=== PATIENT | female | born 1955 | race Caucasian/White ===

== ENCOUNTER → 2019-06-08 08:45 | Outpatient (CLI) | payer OTHER, SELFPAY ==
[2019-06-08 09:40] LABS: BUN Creatinine Ratio 17.8 (6-22); Blood Urea Nitrogen 16 mg/dL (7-17); Calcium 9.3 mg/dL (8.4-10.2); Carbon Dioxide 32 mmol/L (22-32); Chloride 99 mmol/L (98-107); Cholesterol 195 mg/dL (140-199); Estimated Glomerular Filt Rate > 60.0 mL/min (>60); Glucose 94 mg/dL (80-110); HDL Cholesterol 79 mg/dL (40-60); HEMOLYSIS < 15 (0-50); LDL Cholesterol Calculated 102 mg/dL (<100); Potassium 3.8 mmol/L (3.4-5.1); Sodium 137 mmol/L (137-145); Triglycerides 72 mg/dL (35-150)
== END ==
PROVIDERS: PCP Internal Medicine; Visit Provider Internal Medicine
DX: Z00.00 Encounter for general adult medical examination without abnormal findings (principal)
CPT/HCPCS: 36415; 80048; 80061

== ENCOUNTER → 2019-07-20 11:25 | Outpatient (CLI) | payer OTHER, SELFPAY ==
--- NOTE | 2019-07-20 | DI.MG.S_ITS ---
BILATERAL DIGITAL SCREENING MAMMOGRAM 3D/2D WITH CAD: 07/20/2019 CLINICAL: Routine screening. Comparison is made to exams dated: 05/08/2017 mammogram and 06/24/2013 mammogram - [facility]. There are scattered fibroglandular elements in both breasts. Current study was also evaluated with a Computer Aided Detection (CAD) system. No significant masses, calcifications, or other findings are seen in either breast. There has been no significant interval change. IMPRESSION: NEGATIVE There is no mammographic evidence of malignancy. A 1 year screening mammogram is recommended. This exam was interpreted at Station ID: [id number]. NOTE: For mammograms, a report in lay terms will be sent to the patient. Approximately 15% of breast malignancies will not be visualized mammographically. In the management of a palpable breast mass, a negative mammogram must not discourage biopsy of a clinically suspicious lesion. Electronically Signed By: Cecilio oliveira/bryon:07/21/2019 14:27:41 letter sent: Normal Exam ACR BI-RADS Category 1: Negative 3341F
== END ==
PROVIDERS: PCP Internal Medicine; Visit Provider Internal Medicine
DX: Z12.31 Encounter for screening mammogram for malignant neoplasm of breast (principal)
CPT/HCPCS: 77063; 77067

== ENCOUNTER → 2020-08-09 10:26 | Outpatient (CLI) | payer OTHER, SELFPAY ==
--- NOTE | 2020-08-09 | DI.RAD.S_ITS ---
PROCEDURE: XR KNEE LT 1TO2V INDICATIONS: LEFT KNEE PAIN TECHNIQUE: 3 views of the knee were acquired. COMPARISON: None. FINDINGS: Bones: No fractures or dislocations. No suspicious bony lesions. Small spur at the superior pole of the patella. No definite joint space narrowing. Soft tissues: No joint effusion. No suspicious soft tissue calcifications. IMPRESSION: Spurring at the superior pole of the patella. Dictated by: Fabricio Mercer M.D. on 08/09/2020 at 11:19 Approved by: Fabricio Mercer M.D. on 08/09/2020 at 11:20
== END ==
PROVIDERS: PCP Internal Medicine; Referring Provider Internal Medicine; Visit Provider Internal Medicine
DX: M25.562 Pain in left knee (principal)
CPT/HCPCS: 73560

== ENCOUNTER → 2020-08-29 14:06 | Outpatient (CLI) | payer OTHER, SELFPAY ==
--- NOTE | 2020-08-29 10:18 | DI.US.S_ITS ---
Date: 08/29/2020 10:18 At the request of: MARIBEL TEJADA Procedure: US breast RT limited LIMITED ULTRASOUND OF RIGHT BREAST: 08/29/2020 CLINICAL: Palpable right breast lump by physician. Comparison is made to exams dated: 08/29/2020 mammogram, 07/20/2019 mammogram - [facility], and 05/08/2017 mammogram - [facility]. Real-time ultrasound of the right breast was performed. Meza scale images of the real-time examination were reviewed. No significant abnormalities were seen sonographically in the right breast. IMPRESSION: NEGATIVE There is no sonographic evidence of malignancy. There is no abnormality seen in the right breast to correspond with the palpable abnormality, however, clinical correlation is recommended. A 1 year screening mammogram is recommended. This exam was interpreted at Station ID: [id number]. Electronically Signed By: Bethel cohen/bryon:08/30/2020 11:10:54 letter sent: Clinical Evaluation Ultrasound BI-RADS: 1 Negative
--- NOTE | 2020-08-29 14:33 | DI.MG.S_ITS ---
Date: 08/29/2020 15:42 At the request of: MARIBEL TEJADA Procedure: MM diagnostic mammo BI BILATERAL DIGITAL DIAGNOSTIC MAMMOGRAM 3D/2D: 08/29/2020 CLINICAL: Right breast lump. Comparison is made to exams dated: 07/20/2019 mammogram - [facility] and 05/08/2017 mammogram - [facility]. There are scattered fibroglandular elements in both breasts. No significant masses, calcifications, or other findings are seen in either breast. IMPRESSION: INCOMPLETE: NEEDS ADDITIONAL IMAGING EVALUATION There is no abnormality seen in the right breast to correspond with the reported palpable abnormality felt by the patient's physician, however, ultrasound is recommended. Targeted ultrasound is recommended for further evaluation, which will be scheduled immediately following this exam. This exam was interpreted at Station ID: [id number]. NOTE: For mammograms, a report in lay terms will be sent to the patient. Approximately 15% of breast malignancies will not be visualized mammographically. In the management of a palpable breast mass, a negative mammogram must not discourage biopsy of a clinically suspicious lesion. Electronically Signed By: Bethel Persaud M.D. ar/:08/30/2020 11:09:48 ACR BI-RADS Category 0: Incomplete 3340F
== END ==
PROVIDERS: PCP Internal Medicine; Referring Provider Internal Medicine; Visit Provider Internal Medicine
DX: R92.2 Inconclusive mammogram (principal); N63.10 Unspecified lump in the right breast, unspecified quadrant
CPT/HCPCS: 76642; 77066; G0279

== ENCOUNTER → 2020-10-11 09:42 | Outpatient (CLI) | payer OTHER, SELFPAY ==
[2020-10-11] MEDS: COVID-19 VACC #1, MRNA(MOD) 100 MCG/0.5 ML VIAL IM (09:44)
== END ==
PROVIDERS: PCP Internal Medicine; Visit Provider Internal Medicine
DX: Z23 Encounter for immunization (principal)
CPT/HCPCS: 0011A; 91301

== ENCOUNTER → 2020-11-08 09:07 | Outpatient (CLI) | payer OTHER, SELFPAY ==
[2020-11-08] MEDS: COVID-19 VACC #2, MRNA(MOD) 100 MCG/0.5 ML VIAL IM (09:11)
== END ==
PROVIDERS: PCP Internal Medicine; Visit Provider Internal Medicine
DX: Z23 Encounter for immunization (principal)
CPT/HCPCS: 0012A; 91301

== ENCOUNTER → 2021-06-26 08:42 | Outpatient (CLI) | payer MEDICARE, SELFPAY ==
[2021-06-26 10:11] LABS: Add Manual Diff / Slide Review NO; Basophils Absolute Auto 0 /uL (0-100); Basophils Percent Auto 0.4 % (0-2); Eosinophils Absolute Auto 100 /uL (0-450); Eosinophils Percent Auto 2.2 % (2-4); Hematocrit 40.3 % (36-46); Hemoglobin 13.9 g/dL (12.0-16.0); Lymphocytes Absolute Auto 1800 /uL (1100-4500); Lymphocytes Percent Auto 36.1 % (25-40); Mean Corpuscular HGB Conc 34.6 % (30-36); Mean Corpuscular Hemoglobin 31.9 PG (26-34); Mean Corpuscular Volume 92.4 fL (80-100); Monocytes Absolute Auto 400 /uL (0-900); Monocytes Percent Auto 7.9 % (3-14); Neutrophils Absolute Auto 2600 /uL (1500-7000); Neutrophils Percent Auto 53.4 % (50-75); Platelet Count 200 X10^3/uL (150-400); Red Blood Cell Count 4.36 X10^6/uL (4.0-5.2); Red Cell Distribution Width 13.4 % (11.6-14.8); White Blood Cell Count 4.9 X10^3/uL (4.5-11.0)
[2021-06-26 10:39] LABS: Alanine Aminotransferase 17 IU/L (<35); Albumin 4.6 g/dL (3.5-5.0); Albumin Globulin Ratio 1.9 (1.0-2.8); Alkaline Phosphatase 67 U/L (38-126); Aspartate Aminotransferase 27 IU/L (14-36); BUN Creatinine Ratio 15.9 (6-22); Bilirubin Total 0.7 mg/dL (0.2-1.3); Blood Urea Nitrogen 13 mg/dL (7-17); Calcium 9.3 mg/dL (8.4-10.2); Carbon Dioxide 31 mmol/L (22-32); Chloride 101 mmol/L (98-107); Cholesterol 219 mg/dL (140-199); Estimated Glomerular Filt Rate > 60.0 mL/min (>60); Globulin 2.4 g/dL (1.7-4.1); Glucose 92 mg/dL (80-110); HDL Cholesterol 84 mg/dL (40-60); HEMOLYSIS < 15 (0-50); LDL Cholesterol Calculated 114 mg/dL (<100); Sodium 140 mmol/L (137-145); Triglycerides 105 mg/dL (35-150)
== END ==
PROVIDERS: PCP Family Medicine; Referring Provider Family Medicine; Visit Provider Family Medicine
DX: E78.5 Hyperlipidemia, unspecified (principal); L71.9 Rosacea, unspecified; G43.909 Migraine, unspecified, not intractable, without status migrainosus
CPT/HCPCS: 36415; 80053; 80061; 85025

== ENCOUNTER → 2021-07-23 09:58 | Outpatient (CLI) | payer MEDICARE, SELFPAY ==
--- NOTE | 2021-07-23 10:00 | DI.RAD.S_ITS ---
PROCEDURE: XR FOOT RT MIN 3V INDICATIONS: right 5th toe pain, injury TECHNIQUE: 3 views of the foot were acquired. COMPARISON: None. FINDINGS: Bones: Question subtle fracture of the distal neck of the proximal phalanx of the small toe. This is not definite. No suspicious bony lesions. Soft tissues: No tibiotalar joint effusion. Achilles tendon appears normal. IMPRESSION: Question subtle fracture of the distal neck of the proximal phalanx of the small toe. Dictated by: Jean-Claude Cool M.D. on 07/23/2021 at 12:54 Approved by: Jean-Claude Cool M.D. on 07/23/2021 at 12:54
== END ==
PROVIDERS: PCP Family Medicine; Referring Provider Family Medicine; Visit Provider Family Medicine
DX: S93.504A Unspecified sprain of right lesser toe(s), initial encounter (principal); X58.XXXA Exposure to other specified factors, initial encounter
CPT/HCPCS: 73630

== ENCOUNTER → 2021-10-01 11:22 | Outpatient (CLI) | payer MEDICARE, SELFPAY ==
--- NOTE | 2021-10-01 11:23 | DI.RAD.S_ITS ---
PROCEDURE: XR DEXA AXIAL SKELETON INDICATIONS: osteoporosis screen COMPARISON: None. FINDINGS: This blank DEXA report has been sent in error by the PACS system. The correct and complete report will be forthcoming in 1-2 days. Thank you for your patience and understanding. Dictated by: Elizabeth Moser MD, PhD on 10/01/2021 at 13:38 Approved by: Elizabeth Moser MD, PhD on 10/01/2021 at 13:38
== END ==
PROVIDERS: PCP Family Medicine; Referring Provider Family Medicine; Visit Provider Family Medicine
DX: M85.89 Other specified disorders of bone density and structure, multiple sites (principal); Z13.820 Encounter for screening for osteoporosis; Z78.0 Asymptomatic menopausal state
CPT/HCPCS: 77080

== ENCOUNTER → 2022-09-17 07:41 | Outpatient (CLI) | payer MEDICARE, SELFPAY ==
[2022-09-17 09:06] LABS: Add Manual Diff / Slide Review NO; Basophils Absolute Auto 0 /uL (0-100); Basophils Percent Auto 0.4 % (0-2); Eosinophils Absolute Auto 100 /uL (0-450); Eosinophils Percent Auto 2.1 % (2-4); Hematocrit 39.1 % (36-46); Hemoglobin 13.4 g/dL (12.0-16.0); Lymphocytes Absolute Auto 1800 /uL (1100-4500); Mean Corpuscular HGB Conc 34.4 % (30-36); Mean Corpuscular Hemoglobin 31.9 PG (26-34); Mean Corpuscular Volume 92.8 fL (80-100); Monocytes Absolute Auto 400 /uL (0-900); Monocytes Percent Auto 8.4 % (3-14); Neutrophils Absolute Auto 2400 /uL (1500-7000); Neutrophils Percent Auto 50.1 % (50-75); Platelet Count 202 X10^3/uL (150-400); Red Blood Cell Count 4.21 X10^6/uL (4.0-5.2); Red Cell Distribution Width 13.8 % (11.6-14.8); White Blood Cell Count 4.7 X10^3/uL (4.5-11.0)
[2022-09-17 09:23] LABS: Alanine Aminotransferase 26 IU/L (<35); Albumin 4.5 g/dL (3.5-5.0); Albumin Globulin Ratio 1.4 (1.0-2.8); Alkaline Phosphatase 60 U/L (38-126); Aspartate Aminotransferase 30 IU/L (14-36); BUN Creatinine Ratio 18.5 (6-22); Bilirubin Total 0.7 mg/dL (0.2-1.3); Blood Urea Nitrogen 15 mg/dL (7-17); Calcium 8.9 mg/dL (8.4-10.2); Carbon Dioxide 31 mmol/L (22-32); Chloride 100 mmol/L (98-107); Cholesterol 205 mg/dL (140-199); Estimated Glomerular Filt Rate > 60 mL/min (>60); Globulin 3.2 g/dL (1.7-4.1); Glucose 89 mg/dL (80-110); HDL Cholesterol 68 mg/dL (40-60); HEMOLYSIS < 15 (0-50); LDL Cholesterol Calculated 113 mg/dL (<100); Potassium 3.7 mmol/L (3.4-5.1); Sodium 138 mmol/L (137-145); Total Protein 7.7 g/dL (6.3-8.2); Triglycerides 119 mg/dL (35-150)
[2022-09-17 09:54] LABS: TSH w/ Reflex to FT4 4.44 uIU/mL (0.47-4.68)
== END ==
PROVIDERS: PCP Family Medicine; Referring Provider Family Medicine; Visit Provider Family Medicine
DX: Z00.00 Encounter for general adult medical examination without abnormal findings (principal); E78.5 Hyperlipidemia, unspecified; G43.909 Migraine, unspecified, not intractable, without status migrainosus; N95.1 Menopausal and female climacteric states
CPT/HCPCS: 36415; 80053; 80061; 84443; 85025

== ENCOUNTER → 2022-09-23 09:12 | Outpatient (CLI) | payer MEDICARE, SELFPAY ==
--- NOTE | 2022-09-23 09:13 | DI.MG.S_ITS ---
BILATERAL DIGITAL SCREENING MAMMOGRAM 3D/2D WITH CAD: 09/23/2022 CLINICAL: Routine screening. Comparison is made to exams dated: 07/20/2019 mammogram - [facility], 05/08/2017 mammogram - [facility], and 08/29/2020 mammogram - [facility]. There are scattered areas of fibroglandular density in both breasts (category b / 25%-50% glandular tissue). Current study was also evaluated with a Computer Aided Detection (CAD) system. No significant masses, calcifications, or other findings are seen in either breast. There has been no significant interval change. IMPRESSION: NEGATIVE There is no mammographic evidence of malignancy. A 1 year screening mammogram is recommended. Based on the Tyrer Cuzick model (a risk assessment model) the patient's lifetime risk is 6.4% and her 10 year risk is 3.2%. According to the ACR, ACS, and NCCN guidelines, an annual breast MRI exam along with mammogram is recommended if the patient's lifetime risk is 20% or greater. This exam was interpreted at Station ID: [id number]. NOTE: For mammograms, a report in lay terms will be sent to the patient. Approximately 15% of breast malignancies will not be visualized mammographically. In the management of a palpable breast mass, a negative mammogram must not discourage biopsy of a clinically suspicious lesion. Electronically Signed By: Bethel cohen/bryon:09/23/2022 09:49:24 letter sent: Normal Exam ACR BI-RADS Category 1: Negative 3341F
== END ==
PROVIDERS: PCP Family Medicine; Referring Provider Family Medicine; Visit Provider Family Medicine
DX: Z12.31 Encounter for screening mammogram for malignant neoplasm of breast (principal)
CPT/HCPCS: 77063; 77067

== ENCOUNTER → 2023-04-12 11:26 | Outpatient (CLI) | payer MEDICARE, SELFPAY ==
--- NOTE | 2023-04-12 11:28 | DI.RAD.S_ITS ---
PROCEDURE: XR WRIST LT MIN 3V INDICATIONS: Fall on left wrist TECHNIQUE: 4 views of the wrist were acquired. COMPARISON: None. FINDINGS: Bones: No fractures or dislocations. No suspicious bony lesions. Scaphoid view: No fracture. Soft tissues: No suspicious soft tissue calcifications. IMPRESSION: No acute osseous abnormality. If pain persists with conservative management, consider repeat x-ray in 10-14 days or cross-sectional imaging. Dictated by: Darryn Espinoza M.D. on 04/12/2023 at 12:05 Approved by: Darryn Espinoza M.D. on 04/12/2023 at 12:06
== END ==
PROVIDERS: PCP Family Medicine; Referring Provider Physician Assistant; Visit Provider Physician Assistant
DX: M25.532 Pain in left wrist (principal)
CPT/HCPCS: 73110

== ENCOUNTER → 2023-10-20 07:42 | Outpatient (CLI) | payer MEDICARE, SELFPAY ==
[2023-10-20 09:15] LABS: Add Manual Diff / Slide Review NO; Basophils Absolute Auto 0 /uL (0-100); Basophils Percent Auto 0.4 % (0-2); Eosinophils Absolute Auto 100 /uL (0-450); Hematocrit 40.5 % (36-46); Hemoglobin 13.9 g/dL (12.0-16.0); Lymphocytes Absolute Auto 1800 /uL (1100-4500); Lymphocytes Percent Auto 32.8 % (25-40); Mean Corpuscular HGB Conc 34.4 % (30-36); Mean Corpuscular Hemoglobin 33.2 PG (26-34); Mean Corpuscular Volume 96.4 fL (80-100); Monocytes Absolute Auto 400 /uL (0-900); Monocytes Percent Auto 8.2 % (3-14); Neutrophils Absolute Auto 3100 /uL (1500-7000); Neutrophils Percent Auto 56.6 % (50-75); Platelet Count 206 X10^3/uL (150-400); Red Cell Distribution Width 13.8 % (11.6-14.8); White Blood Cell Count 5.4 X10^3/uL (4.5-11.0)
[2023-10-20 09:33] LABS: Alanine Aminotransferase 29 IU/L (<35); Albumin 4.4 g/dL (3.5-5.0); Albumin Globulin Ratio 1.5 (1.0-2.8); Alkaline Phosphatase 68 U/L (38-126); Aspartate Aminotransferase 27 IU/L (14-36); BUN Creatinine Ratio 16.7 (6-22); Bilirubin Total 0.6 mg/dL (0.2-1.3); Blood Urea Nitrogen 15 mg/dL (7-17); Calcium 9.2 mg/dL (8.4-10.2); Carbon Dioxide 31 mmol/L (22-32); Chloride 100 mmol/L (98-107); Cholesterol 209 mg/dL (140-199); Estimated Glomerular Filt Rate > 60 mL/min (>60); Glucose 94 mg/dL (80-110); HDL Cholesterol 71 mg/dL (40-60); HEMOLYSIS < 15 (0-50); LDL Cholesterol Calculated 117 mg/dL (<100); Potassium 4.3 mmol/L (3.4-5.1); Sodium 137 mmol/L (137-145); Total Protein 7.4 g/dL (6.3-8.2); Triglycerides 107 mg/dL (35-150)
[2023-10-20 18:10] LABS: TSH w/ Reflex to FT4 4.14 uIU/mL (0.47-4.68)
[2023-10-21 09:21] LABS: Apolipoprotein B 90 mg/dL (<90)
== END ==
PROVIDERS: PCP Family Medicine; Referring Provider Family Medicine; Visit Provider Family Medicine
DX: E78.5 Hyperlipidemia, unspecified (principal); L71.9 Rosacea, unspecified; G43.909 Migraine, unspecified, not intractable, without status migrainosus
CPT/HCPCS: 36415; 80053; 80061; 82172; 84443; 85025

== ENCOUNTER → 2024-11-01 07:05 | Outpatient (CLI) | payer MEDICARE, SELFPAY ==
[2024-11-01 07:49] LABS: Add Manual Diff / Slide Review NO; Basophils Absolute Auto 0 /uL (0-100); Basophils Percent Auto 0.3 % (0-2); Eosinophils Absolute Auto 100 /uL (0-450); Eosinophils Percent Auto 2.9 % (2-4); Hematocrit 40.9 % (36-46); Hemoglobin 13.9 g/dL (12.0-16.0); Lymphocytes Absolute Auto 1900 /uL (1100-4500); Lymphocytes Percent Auto 39.3 % (25-40); Mean Corpuscular HGB Conc 34.1 % (30-36); Mean Corpuscular Hemoglobin 32.3 PG (26-34); Mean Corpuscular Volume 94.7 fL (80-100); Monocytes Absolute Auto 400 /uL (0-900); Monocytes Percent Auto 8.4 % (3-14); Neutrophils Absolute Auto 2400 /uL (1500-7000); Neutrophils Percent Auto 49.1 % (50-75); Platelet Count 193 X10^3/uL (150-400); Red Blood Cell Count 4.31 X10^6/uL (4.0-5.2); Red Cell Distribution Width 13.5 % (11.6-14.8); White Blood Cell Count 4.8 X10^3/uL (4.5-11.0)
[2024-11-01 08:19] LABS: Alanine Aminotransferase 22 IU/L (<35); Albumin 4.7 g/dL (3.5-5.0); Alkaline Phosphatase 63 U/L (38-126); Aspartate Aminotransferase 28 IU/L (14-36); Bilirubin Total 0.9 mg/dL (0.2-1.3); Blood Urea Nitrogen 17 mg/dL (7-17); Calcium 9.3 mg/dL (8.4-10.2); Carbon Dioxide 29 mmol/L (22-32); Chloride 100 mmol/L (98-107); Cholesterol 219 mg/dL (140-199); Estimated Glomerular Filt Rate > 60 mL/min (>60); Globulin 2.4 g/dL (1.7-4.1); Glucose 92 mg/dL (80-110); HDL Cholesterol 68 mg/dL (40-60); HEMOLYSIS < 15 (0-50); LDL Cholesterol Calculated 126 mg/dL (<100); Potassium 3.7 mmol/L (3.4-5.1); Sodium 138 mmol/L (137-145); Total Protein 7.1 g/dL (6.3-8.2); Triglycerides 125 mg/dL (35-150)
[2024-11-01 08:46] LABS: TSH w/ Reflex to FT4 4.47 uIU/mL (0.47-4.68)
[2024-11-01 16:34] LABS: Hep C Virus Ab w/Reflex Quant NEGATIVE s/c (NEGATIVE)
== END ==
PROVIDERS: PCP Family Medicine; Referring Provider Family Medicine; Visit Provider Family Medicine
DX: I10 Essential (primary) hypertension (principal); Z13.9 Encounter for screening, unspecified; E78.5 Hyperlipidemia, unspecified; Z11.59 Encounter for screening for other viral diseases
CPT/HCPCS: 36415; 80053; 80061; 84443; 85025; 86803

== ENCOUNTER → 2024-11-22 14:40 | Outpatient (CLI) | payer MEDICARE, SELFPAY ==
--- NOTE | 2024-11-22 14:41 | DI.MG.S_ITS ---
MM screening mammo BI: 11/22/2024. BI-RADS: 2 CLINICAL: 69-year old female for bilateral screening mammogram. Tyrer-Cuzick lifetime risk of 4.0%. No personal or first-degree family history of breast cancer. PRIOR EXAMS 09/23/2022, 08/29/2020, 07/20/2019. MAMMOGRAPHY TECHNIQUE: 2D and 3D (tomosynthesis) digital mammographic views obtained, with additional images as needed for full coverage. Current study was also evaluated with a Computer Aided Detection (CAD) system. DENSITY B. There are scattered areas of fibroglandular density. MAMMOGRAPHY FINDINGS Bilateral: Typically-benign vascular calcifications noted. No significant change from comparison. IMPRESSION: * No evidence of malignancy with benign findings. RECOMMENDATIONS Bilateral * Annual screening mammography. OVERALL ASSESSMENT CATEGORY BI-RADS-2: Benign. The [employer] recommends annual screening mammography beginning at age 40 for women with average risk of breast cancer. ELECTRONICALLY SIGNED: Bettye Palmer M.D. on 11/23/2024 at 10:01:01 AM PT Interpreting Station ID: [id number]
== END ==
LOC: MAMMO 14:40
PROVIDERS: PCP Family Medicine; Referring Provider Family Medicine; Visit Provider Family Medicine
DX: Z12.31 Encounter for screening mammogram for malignant neoplasm of breast (principal); R92.1 Mammographic calcification found on diagnostic imaging of breast
CPT/HCPCS: 77063; 77067

== ENCOUNTER 2024-11-28 13:26 | Day surgery (SDC) | payer MEDICARE, SELFPAY ==
--- NOTE | 2024-11-28 | PATH_ITS ---
[facility] Accession Number: [id number] No. of containers..01 Tissue . 01 Material submitted: . rectum - LARGE RECTAL POLYP . 01 Diagnosis: LARGE RECTAL POLYP: Tubulovillous adenoma. No high-grade dysplasia or malignancy identified. [facility] 12/02/2024 1309 Local . 01 Electronically signed: . Cecilio Mg MD, Pathologist NPI- [id number] . 01 Gross description: . LARGE RECTAL POLYP: Received in formalin is 1 fragment of mejia soft tissue measuring 2.0 x 1.3 x 1.2 cm. Specimen is sectioned and submitted in its entirety in 2 cassettes. /ODILON 12/02/2024 1309 Local . 01 Pathologist provided ICD-10: D12.8 . 01 CPT . 335308 Specimen Comment: A courtesy copy of this report has been sent to [phone] Performed at: [address] [id number] MD Cecilio Mg MD Phone: [phone]
[2024-11-28] MEDS: LACTATED RINGERS 1,000 ML 42 ML IV (14:42)
[2024-11-28 14:46] VITALS: BP 148/76; PULSE 67; RESP 12; TEMP 36.2; O2SAT 99
--- NOTE | 2024-11-28 15:26 | P.HP_ITS ---
History of Present Illness History of Present Illness Date Patient Seen: 11/28/24 Chief complaint: Colonoscopy Narrative: Follow-up colonoscopy last 10 years ago. One polyp removed at [facility] Medical History (Updated 11/07/24 @ 17:07 by Norman Doll MD) Impacted cerumen of both ears Hypertension Initial Medicare annual wellness visit Welcome to Medicare preventive visit Rosacea (~2019) Migraines (~1999) Mumps Measles Chicken pox Genital warts (~1988) Colon polyps (~2014) Skin cancer, basal cell (~2000) Surgical History Anesthesia Thyroglossal duct cyst (~09/13/04) History of hand surgery (~02/08/10) Family History Mother Cancer Grandfather Cancer Grandmother Congestive heart failure Grandfather Broken hip Grandmother Bowel obstruction Social History Smoking Status: Never smoker Meds Home Medications and Allergies Home Medications Medication Instructions Recorded Confirmed Type amlodipine 5 mg tablet 5 mg PO DAILY #90 tabs 11/07/24 11/28/24 Rx losartan 100 mg tablet 100 mg PO DAILY #90 tabs 11/07/24 11/28/24 Rx sodium,potassium,mag sulfates 17.5 See Rx Instructions PO .COMPLEX 11/17/24 Rx gram-3.13 gram-1.6 gram oral soln #354 mL (Suprep Bowel Prep Kit) Allergies Allergy/AdvReac Type Severity Reaction Status Date / Time No Known Drug Allergies Allergy Verified 11/28/24 14:45 Exam Vital Signs (past 8 hours): - 11/28/24 14:46 Temperature 97.2 F L Pulse Rate 67 Respiratory Rate 12 Blood Pressure 148/76 H Pulse Oximetry 99 Oxygen Delivery Method Room Air Oxygen Delivery Method Room Air Narrative Exam Narrative: Oropharynx free of lesions Chest clear to auscultation percussion Cardiac exam reveals no S3 or murmur Assessment & Plan Assessment & Plan narrative: Follow-up 10 year colonoscopy with history of polyps unclear whether adenomatous. Risks, benefits, alternatives have been explained. Time-Based Coding :: [TOTAL MINUTES] spent with patient and on the chart (including review of chart, obtaining history, exam, reviewing outside data, placing orders, documenting exam and treatment plan, and counseling patient) on [DATE]. [employer] Home [employer] Document charge(s): No
--- NOTE | 2024-11-28 15:27 | PM.OP.COLON ---
Operative Date/Time/Diagnoses Date of procedure: 11/28/24 Time of procedure: 16:04 Pre-op diagnosis: See indication and findings Post-op diagnosis: same Procedure & Clinicians Study performed: Colonoscopy Same procedure as scheduled: Yes Surgeon: Tiffani Mathew Procedure Notes Procedure in detail: After informed consent was obtained the patient was placed in left lateral decubitus position. The video colonoscope was introduced to the rectum slowly advanced cecum. Preparation was good. On slow withdrawal mucosa was carefully examined. The scope was removed. The patient tolerated procedure well. Blood loss none Complications none Sedation mac Findings 1. Large 2 x 3.5 cm semi pedunculated polyp in the mid rectum. This was treated with 2 cc of epinephrine before using piecemeal technique to remove the bulk of the polyp. It could not be said that the entire polyp was removed. The area was marked with small aliquots of spot. Polyp was retrieved. 2. Otherwise negative colonoscopy to cecum We will follow-up on the pathology. At the very least she will need follow-up colonoscopy/sigmoidoscopy in 3 months to check for complete healing and to see whether further treatment is advised with APC.
[2024-11-28] MEDS: EPINEPHrine 1 MG/10 ML SYRINGE INJ (15:39)
[2024-11-28 16:00] VITALS: BP 89/54; PULSE 89; RESP 16; TEMP 36.2; O2SAT 94
[2024-11-28 16:05] VITALS: BP 87/51; PULSE 85; RESP 12; O2SAT 95
[2024-11-28 16:10] VITALS: BP 101/63; PULSE 85; RESP 13; O2SAT 97
[2024-11-28 16:23] VITALS: BP 107/71; PULSE 85; RESP 20; O2SAT 99
== END 2024-11-28 16:28 | disposition home or self-care (01) ==
PROVIDERS: PCP Family Medicine; Referring Provider Internal Medicine Gastroenterology; Visit Provider Internal Medicine Gastroenterology
PROC: 0DJD8ZZ Inspection of Lower Intestinal Tract, Via Natural or Artificial Opening Endoscopic (ICD-10-PCS; CPT 45378; principal; 2024-11-28 14:30)
DX: Z12.11 Encounter for screening for malignant neoplasm of colon (principal); Z86.0100 Personal history of colon polyps, unspecified; D12.8 Benign neoplasm of rectum
CPT/HCPCS: 45380; J0171; J2405; J2704

== ENCOUNTER → 2025-05-08 07:20 | Outpatient (CLI) | payer MEDICARE, SELFPAY ==
[2025-05-08 08:25] LABS: Add Manual Diff / Slide Review NO; Hematocrit 39.8 % (36-46); Hemoglobin 13.6 g/dL (12.0-16.0); Lymphocytes Absolute Auto 2400 /uL (1100-4500); Mean Corpuscular HGB Conc 34.3 % (30-36); Mean Corpuscular Hemoglobin 31.9 PG (26-34); Mean Corpuscular Volume 92.9 fL (80-100); Platelet Count 214 X10^3/uL (150-400)
[2025-05-08 08:43] LABS: Alanine Aminotransferase 19 IU/L (<35); Albumin 4.7 g/dL (3.5-5.0); Albumin Globulin Ratio 1.9 (1.0-2.8); Alkaline Phosphatase 68 U/L (38-126); Blood Urea Nitrogen 14 mg/dL (7-17); Calcium 9.3 mg/dL (8.4-10.2); Carbon Dioxide 27 mmol/L (22-32); Chloride 100 mmol/L (98-107); Cholesterol 194 mg/dL (140-199); Estimated Glomerular Filt Rate > 60 mL/min (>60); Globulin 2.5 g/dL (1.7-4.1); Glucose 99 mg/dL (70-99); HDL Cholesterol 83 mg/dL (40-60); HEMOLYSIS 22 (0-50); Potassium 4.1 mmol/L (3.4-5.1); Sodium 138 mmol/L (137-145); Total Protein 7.2 g/dL (6.3-8.2); Triglycerides 99 mg/dL (35-150)
== END ==
PROVIDERS: PCP Family Medicine; Referring Provider Family Medicine; Visit Provider Family Medicine
DX: I10 Essential (primary) hypertension (principal); E78.5 Hyperlipidemia, unspecified
CPT/HCPCS: 36415; 80053; 80061; 85025